=== PATIENT | male | born 1955 | race Caucasian/White ===

== ENCOUNTER 2018-01-15 18:49 | Inpatient (IN) ==
--- NOTE | 2018-01-15 20:52 | ED ---
HPI General Chief complaint: Extremity Problem,Nontraumatic Stated complaint: lft arm infection/swelling Time Seen by Provider: 01/15/18 20:41 History of Present Illness HPI Narrative: This patient complains of pain and swelling and redness of his left elbow region. Is tracking down his forearm into his hand. Duration 2 weeks. He went to an urgent care center yesterday and got a prescription for Bactrim and Keflex which he started yesterday. There is no drainage or injury. Symptom severity is moderate. He is vacationing from [place]. No alleviating factors. No exacerbating factors. Related Data Home Medications Medication Instructions Recorded Confirmed cephalexin [Keflex] 500 mg PO TID 01/15/18 01/15/18 sulfamethoxazole-trimethoprim 1 tab PO Q12H 01/15/18 01/15/18 [Bactrim DS] Allergies Allergy/AdvReac Type Severity Reaction Status Date / Time No Known Allergies Allergy Unverified 01/15/18 19:10 Review of Systems ROS: all other systems reviewed are negative [facility] Medical History Medical History Prostate CA (Acute) Surgical History Surgical History No history of previous surgery (Acute) Social History Social History Substance History: No History of Abuse Second Hand Smoke Exposure: No Smoking Status: Never smoker How Often Do You Have a Drink Containing Alcohol: 4 or more times a week Recent Travel in [facility] within the Last 8 Weeks: No Recent Out of Country Travel within the Last 8 Weeks: No Exam Narrative Exam Narrative: GENERAL: Well-nourished, well-developed patient in no apparent distress. SKIN: Focused skin assessment reveals no rash and nodules. Skin is Warm and dry. HEAD: Atraumatic. Normocephalic. EYES: Pupils equal and round. No scleral icterus. No injection or drainage. ENT: No nasal bleeding or discharge. Mucous membranes pink and moist. NECK: Trachea midline. No JVD. CARDIOVASCULAR: Regular rate and rhythm. No murmur appreciated. RESPIRATORY: No accessory muscle use. Clear to auscultation. Breath sounds equal bilaterally. GASTROINTESTINAL: Abdomen soft, non-tender, nondistended. Hepatic and splenic margins not palpable. MUSCULOSKELETAL: No obvious deformities. No clubbing. No cyanosis. Patient has a swollen olecranon bursa with erythema and tenderness and warmth. The hand is swollen and the forearm is swollen as well. Neurovascularly intact. No tenseness to compartments. There is no fluctuance or drainage. Good range of motion of left elbow without pain NEUROLOGICAL: Awake and alert. No obvious cranial nerve deficits. Motor grossly within normal limits. Normal speech. PSYCHIATRIC: Appropriate mood and affect; insight and judgment normal. Course Initial Documented Vital Signs Temperature 100.5 F H 01/15/18 19:04 Pulse Rate 108 H 01/15/18 19:04 Respiratory Rate 18 01/15/18 19:04 Blood Pressure 153/91 H 01/15/18 19:04 Pulse Oximetry 95 01/15/18 19:04 Last Documented Vital Signs Temperature 100.5 F H 01/15/18 19:04 Pulse Rate 108 H 01/15/18 19:04 Respiratory Rate 18 01/15/18 19:04 Blood Pressure 153/91 H 01/15/18 19:04 Pulse Oximetry 95 01/15/18 19:04 Medical Decision Making MDM Narrative Medical decision making narrative: Patient has a left olecranon bursitis that is starting to become forearm cellulitis. He does not have a septic joint. IV placed and labs sent. His lab studies are normal. Procedure note: I explained risks benefits and alternatives. He gives verbal consent to do aspiration of his bursa. I cleaned the area thoroughly with Betadine. I anesthetized the area around his left olecranon bursa with ethyl chloride spray. I inserted an 18-gauge needle into the bursa and withdrew some bragg colored pus. That will be sent for culture and sensitivity and Gram stain I gave him 1 g IV vancomycin I believe the patient needs admission for IV antibiotics and consideration of consultation for formal drainage given that the bursa is full of pus. I reviewed with the hospitalist. Medical Records Medical records reviewed: Yes I reviewed the patient's medical records. Lab Data Result diagrams: 01/15/18 21:13 01/15/18 21:13 Lab Results 01/15/18 01/15/18 Range/Units 21:13 21:13 CBC w Diff Auto diff final WBC 9.3 (4.0-11.0) th/mm3 RBC 4.63 (4.50-5.90) mil/mm3 Hgb 14.5 (13.0-17.0) gm/dL Hct 42.1 (39.0-51.0) % MCV 90.9 (80.0-100.0) fL MCH 31.2 (27.0-34.0) pg MCHC 34.4 (32.0-36.0) % RDW 13.0 (11.6-17.2) % Plt Count 282 (150-450) th/mm3 MPV 7.4 (7.0-11.0) fL Neut % (Auto) 81.5 H (16.0-70.0) % Lymph % (Auto) 11.8 (9.0-44.0) % [place] % (Auto) 5.5 (0.0-8.0) % Eos % (Auto) 0.8 (0.0-4.0) % Baso % (Auto) 0.4 (0.0-2.0) % Neut # (Auto) 7.6 (1.8-7.7) th/mm3 Lymph # (Auto) 1.1 (1.0-4.8) th/mm3 [place] # (Auto) 0.5 (0.0-0.9) th/mm3 Eos # (Auto) 0.1 (0.0-0.4) th/mm3 Baso # (Auto) 0.0 (0.0-0.2) th/mm3 WBC Differential . Differential Comment . Sodium 136 (136-145) meq/L Potassium 3.9 (3.5-5.1) meq/L Chloride 101 (98-107) meq/L Carbon Dioxide 28.3 (21.0-32.0) meq/L Anion Gap 7 (5-15) meq/L BUN 14 (7-18) mg/dL Creatinine 1.20 (0.60-1.30) mg/dL Estimated GFR 61 L (>89) mL/min Random Glucose 109 H (74-106) mg/dL Calcium 8.7 (8.5-10.1) mg/dL Discharge Plan Discharge Disposition Patient Disposition: 30 Still Patient Discharge Details Diagnosis: Olecranon bursitis of left elbow, Cellulitis of forearm, left Physicians Team ED Provider: Roverto López Primary Care Provider: UNKNOWN, Rxs /Orders / Referrals /Forms Prescriptions: No Action sulfamethoxazole-trimethoprim [Bactrim DS] 800-160 mg Tablet 1 tab PO Q12H RF: 0 cephalexin [Keflex] 500 mg Capsule 500 mg PO TID RF: 0 Status ED Status: With Doctor
[2018-01-15] MEDS ORDERED: ETHYL CHLORIDE TOPICAL ONE (21:06)
[2018-01-15 21:17] LABS: Baso % (Auto) 0.4 % (0.0-2.0); Eos # (Auto) 0.1 th/mm3 (0.0-0.4); Eos % (Auto) 0.8 % (0.0-4.0); Hematocrit 42.1 % (39.0-51.0); Hemoglobin 14.5 gm/dL (13.0-17.0); Lymph # (Auto) 1.1 th/mm3 (1.0-4.8); Lymph % (Auto) 11.8 % (9.0-44.0); Mean Corpuscular HGB Conc 34.4 % (32.0-36.0); Mean Corpuscular Hemoglobin 31.2 pg (27.0-34.0); Mean Corpuscular Volume 90.9 fL (80.0-100.0); Mean Platelet Volume 7.4 fL (7.0-11.0); Mono # (Auto) 0.5 th/mm3 (0.0-0.9); Mono % (Auto) 5.5 % (0.0-8.0); Neut # (Auto) 7.6 th/mm3 (1.8-7.7); Neut % (Auto) 81.5 % (16.0-70.0); Platelet Count 282 th/mm3 (150-450); Red Blood Count 4.63 mil/mm3 (4.50-5.90); White Blood Count 9.3 th/mm3 (4.0-11.0)
[2018-01-15 21:24] LABS: Potassium 3.9 meq/L (3.5-5.1)
[2018-01-15 21:27] LABS: Calcium 8.7 mg/dL (8.5-10.1); Carbon Dioxide 28.3 meq/L (21.0-32.0)
[2018-01-15] MEDS ORDERED: Vancomycin Inj 1,000 MG in Sodium Chlor 0.9% Inj 250 ML IV.SIG ONE (21:58)
[2018-01-15] MEDS ORDERED: Temazepam 15 MG Capsule PO PRN (22:07)
[2018-01-15] MEDS ORDERED: Bisacodyl 10 MG Supp RECTAL PRN (22:07)
[2018-01-15] MEDS ORDERED: Vancomycin Consult Pharmacy 1 EACH OTHER SCH (22:07)
[2018-01-15] MEDS ORDERED: Acetaminophen 325 MG Tablet PO PRN (22:07)
[2018-01-15] MEDS ORDERED: Piperacil/Tazo 3.375 GM Premix 50 ML IV.SIG ONE (22:30)
[2018-01-15] MEDS: Sod Chloride 0.9% Inj 1,000 ML IV.CONT SCH (22:47)
[2018-01-15] MEDS: Heparin - SQ 10,000 UNITS/ML Vial SQ SCH (23:05)
[2018-01-16] MEDS: Piperacil/Tazo 3.375 GM Premix 50 ML IV.SIG SCH ×3 (05:19→16:08)
[2018-01-16 06:34] LABS: Baso % (Auto) 0.5 % (0.0-2.0); Eos # (Auto) 0.1 th/mm3 (0.0-0.4); Eos % (Auto) 1.5 % (0.0-4.0); Hemoglobin 14.3 gm/dL (13.0-17.0); Lymph # (Auto) 1.1 th/mm3 (1.0-4.8); Lymph % (Auto) 12.6 % (9.0-44.0); Mean Corpuscular Hemoglobin 31.3 pg (27.0-34.0); Mean Platelet Volume 7.5 fL (7.0-11.0); Mono # (Auto) 0.6 th/mm3 (0.0-0.9); Mono % (Auto) 7.7 % (0.0-8.0); Neut # (Auto) 6.6 th/mm3 (1.8-7.7); Neut % (Auto) 77.7 % (16.0-70.0); Platelet Count 260 th/mm3 (150-450); Red Blood Count 4.56 mil/mm3 (4.50-5.90); Red Cell Distribution Width 12.8 % (11.6-17.2); White Blood Count 8.4 th/mm3 (4.0-11.0)
[2018-01-16 06:42] LABS: Potassium 3.8 meq/L (3.5-5.1)
[2018-01-16 06:50] LABS: Calcium 8.4 mg/dL (8.5-10.1); Carbon Dioxide 27.6 meq/L (21.0-32.0)
[2018-01-16] MEDS ORDERED: Vancomycin Inj 1,000 MG in Sodium Chlor 0.9% Inj 250 ML IV.SIG SCH (09:00)
[2018-01-16] MEDS: Heparin - SQ 10,000 UNITS/ML Vial SQ SCH ×3 (09:00→21:55)
[2018-01-16] MEDS: Senna/Docusate Sodium 8.6/50 MG Tablet PO SCH ×2 (09:09→21:53)
[2018-01-16] MEDS: Vancomycin Inj 1,000 MG in Sodium Chlor 0.9% Inj 250 ML IV.SIG SCH ×2 (10:25→21:53)
[2018-01-16] MEDS: Sod Chloride 0.9% Inj 1,000 ML IV.CONT SCH (10:26)
--- NOTE | 2018-01-16 10:30 | P.HPIM ---
History of Present Illness Primary Care Physician: UNKNOWN Chief Complaint: Left elbow pain and arm swelling History of Present Illness: Patient is a 62-year-old gentleman with history of prostate cancer which has been quite well controlled. Recently he was doing quite a bit of strenuous activity noted some pain in his elbow. Several days later he noted some pus- looking lesion on the elbow. He sought out urgent care and was given Keflex and Bactrim which she took for about 24 hours. He notices arm began more swelling. He was seen in the emergency room here because of this worsening of symptoms and patient was recommended for further evaluation of the hospital. - Diagnosis (1) Sepsis affecting skin (2) Cellulitis of forearm, left (3) Tinea pedis Review of Systems All other systems reviewed negative except as stated in HPI Skin/Breast: Reports rash (Bilateral feet) PMFSH - History History Provided By: Patient - Medical History Medical History: Medical History (Last Reviewed 01/16/18 @ 10:27 by aKelyn Vargas MD) Prostate CA - Surgical History Surgical History: Surgical History (Last Reviewed 01/16/18 @ 10:27 by Kaelyn Vargas MD) No history of previous surgery - Family History Family History: Family History (Last Updated 01/16/18 @ 10:27 by Kaelyn Vargas MD) Other Dementia Lung cancer - Tobacco History Second Hand Smoke Exposure: Yes Smoking Status: Never smoker - Alcohol History How Often Do You Have a Drink Containing Alcohol: Monthly or less - Substance Use History Substance History: No History of Abuse - Travel History Recent Travel in the [place] Within the Last 8 Weeks: No Recent Travel Out of the Country Within the Last 8 Weeks: No - Immunization History Tetanus Immunization: >5 Years Hx Influenza Vaccine This Season: No Medications and Allergies Active Medications: Active Medications Acetaminophen (Tylenol) 650 mg PO Q4H PRN PRN Reason: Temp > 100.4 Al Hydroxide/Mg Hydroxide (Milk Of Magnesia Liq) 30 ml PO Q12H PRN PRN Reason: Mild Constipation Bisacodyl (Dulcolax Supp) 10 mg RECTAL DAILY PRN PRN Reason: SEVERE CONSITIPATION Heparin Sodium (Porcine) (Heparin Inj) 5,000 units SQ Q12H [facility] Last Admin: 01/15/18 23:05 Dose: Not Given Sodium Chloride (Ns Inj) 1,000 mls @ 100 mls/hr IV.CONT .Q10H [facility] Last Admin: 01/15/18 22:47 Dose: 100 mls/hr Pharmacy Profile Note (Vancomycin Consult Pharmacy) 0 mls @ 0 mls/hr OTHER [facility] Piperacillin/Tazobactam/Dextrose (Zosyn 3.375 Gm Premix) 50 mls @ 100 mls/hr IV.SIG Q6H [facility] Last Admin: 01/16/18 09:08 Dose: 100 mls/hr Vancomycin HCl 1,000 mg/ (Sodium Chloride) 250 mls @ 260 mls/hr IV.SIG Q12HR [facility] Lactulose (Lactulose Liq) 30 ml PO DAILY PRN PRN Reason: SEVERE CONSITIPATION Miscellaneous Information ([facility] Ordered Lab Info) 0 each OTHER UNSCH X1 ONE Stop: 01/17/18 08:46 Ondansetron HCl (Zofran Inj) 4 mg IV.PUSH Q6H PRN PRN Reason: NAUSEA OR VOMITING Senna/Docusate Sodium (Enedelia-Colace) 1 tab PO BID [facility] Last Admin: 01/16/18 09:09 Dose: Not Given Sennosides (Senokot) 17.2 mg PO Q12H PRN PRN Reason: Moderate Constipation Temazepam (Restoril) 15 mg PO HS PRN PRN Reason: INSOMNIA Allergies Allergy/AdvReac Type Severity Reaction Status Date / Time No Known Allergies Allergy Unverified 01/15/18 19:10 Home Medications Medication Instructions Recorded Confirmed Type cephalexin [Keflex] 500 mg PO TID 01/15/18 01/15/18 History sulfamethoxazole-trimethoprim 1 tab PO Q12H 01/15/18 01/15/18 History [Bactrim DS] Exam Vital signs: Vital Signs 01/15/18 19:04 01/15/18 23:09 01/16/18 00:45 Temperature 100.5 F H 98.3 F Pulse Rate 108 H 78 98 H Respiratory Rate 18 20 20 Blood Pressure 153/91 H 149/88 H 151/84 H Pulse Oximetry 95 95 95 01/16/18 08:00 Temperature 98.4 F Pulse Rate 86 Respiratory Rate 16 Blood Pressure 131/75 Pulse Oximetry 96 Intake & Output 01/15/18 01/16/18 01/16/18 18:59 06:59 18:59 Intake Total 470 / 470 Balance 470 / 470 Weight 93.8 kg Intake: IV 350 / 350 Zosyn 3.375 GM Premix 50 ML @ 100 / 100 100 mls/hr IV.SIG Q6H [facility] Rx#: [id number] Vancomycin Inj 1,000 MG In NS 250 / 250 Inj 250 ML @ 250 mls/hr IV.SIG ONCE ONE Rx#:[id number] Oral 120 / 120 Other: # Voids 2 Weight On Admission 93.8 kg Narrative: GENERAL: Well-nourished, well-developed patient. SKIN: Left elbow with significant erythema and improved edema, bilateral feet with dry scaly rash consistent with tinea pedis HEAD: Normocephalic. EYES: No scleral icterus. No injection or drainage. NECK: Supple, trachea midline. No JVD or lymphadenopathy. CARDIOVASCULAR: Regular rate and rhythm without murmurs, gallops, or rubs. RESPIRATORY: Breath sounds equal bilaterally. No accessory muscle use. GASTROINTESTINAL: Abdomen soft, non-tender, nondistended. MUSCULOSKELETAL: No cyanosis, or edema. BACK: Nontender without obvious deformity. No CVA tenderness. NEUROLOGICAL: Awake and alert. Cranial nerves II through XII intact. Motor and sensory grossly within normal limits. Five out of 5 muscle strength in all muscle groups. Normal speech. Results - Labs CBC & Chem 7: 01/16/18 05:58 01/16/18 05:58 Labs: Short CBC 01/15/18 01/16/18 Range/Units 21:13 05:58 WBC 9.3 8.4 (4.0-11.0) th/mm3 Hgb 14.5 14.3 (13.0-17.0) gm/dL Hct 42.1 42.0 (39.0-51.0) % Plt Count 282 260 (150-450) th/mm3 BMP 01/15/18 01/16/18 21:13 05:58 Sodium 136 139 Potassium 3.9 3.8 Chloride 101 104 Carbon Dioxide 28.3 27.6 BUN 14 12 Creatinine 1.20 1.10 Calcium 8.7 8.4 L Caprini VTE Risk Assessment Caprini VTE Risk Assessment: Moderate/High Risk (score >= 2) Caprini Risk Assessment Model: Point Value = 1 Point Value = 2 Point Value = 3 Point Value = 5 Age 41-60 Minor surgery BMI > 25 kg/m2 Swollen legs Varicose veins or History of unexplained or recurrent spontaneous Oral contraceptives or hormone replacement Sepsis (< 1 month) Serious lung disease, including pneumonia (< 1 month) Abnormal pulmonary function Acute myocardial infarction Congestive heart failure (< 1 month) History of inflammatory bowel disease Medical patient at bed rest Age 61-74 Arthroscopic surgery Major open surgery (> 45 min) Laparoscopic surgery (> 45 min) Malignancy Confined to bed (> 72 hours) Immobilizing plaster cast Central venous access Age >= 75 History of VTE Family history of VTE Factor V Leiden Prothrombin [id number] Lupus anticoagulant Anticardiolipin antibodies Elevated serum homocysteine Heparin-induced thrombocytopenia Other congenital or acquired thrombophilia Stroke (< 1 month) Elective arthroplasty Hip, pelvis, or leg fracture Acute spinal cord injury (< 1 month) Prophylaxis Regimen: Total Risk Factor Score Risk Level Prophylaxis Regimen 0-1 Low Early ambulation 2 Moderate Order ONE of the following: *Sequential Compression Device (SCD) *Heparin 5000 units SQ BID 3-4 Higher Order ONE of the following medications: *Heparin 5000 units SQ TID *Enoxaparin/Lovenox 40 mg SQ daily (WT < 150 kg, CrCl > 30 mL/min) *Enoxaparin/Lovenox 30 mg SQ daily (WT < 150 kg, CrCl > 10-29 mL/min) *Enoxaparin/Lovenox 30 mg SQ BID (WT < 150 kg, CrCl > 30 mL/min) AND/OR *Sequential Compression Device (SCD) 5 or more Highest Order ONE of the following medications: *Heparin 5000 units SQ TID (Preferred with Epidurals) *Enoxaparin/Lovenox 40 mg SQ daily (WT < 150 kg, CrCl > 30 mL/min) *Enoxaparin/Lovenox 30 mg SQ daily (WT < 150 kg, CrCl > 10-29 mL/min) *Enoxaparin/Lovenox 30 mg SQ BID (WT < 150 kg, CrCl > 30 mL/min) AND *Sequential Compression Device (SCD) Assessment and Plan - Assessment (1) Sepsis affecting skin Code(s): A41.9 - Sepsis, unspecified organism Status: Acute Plan: Patient with tachycardia and temperature 100.5. Continue with IV antibiotics and treatment of left olecranon abscess and cellulitis (2) Cellulitis of forearm, left Code(s): L03.114 - Cellulitis of left upper limb Status: Acute Plan: Continue with Zosyn and vancomycin IV, cultures preliminary did show many gram- positive cocci, identification and sensitivities are pending (3) Tinea pedis Code(s): B35.3 - Tinea pedis Status: Acute Plan: Clotrimazole twice daily - Plan Discharge Planning: Pending cultures, likely oral antibiotics H&P: Quality - VTE Deep Vein Thrombosis/Pulmonary Embolism Present on Admission: No
[2018-01-16] MEDS: Clotrimazole 1% Cream 15 GM Tube TOPICAL SCH ×2 (16:33→21:52)
[2018-01-17] MEDS: Piperacil/Tazo 3.375 GM Premix 50 ML IV.SIG SCH ×3 (00:50→11:25)
[2018-01-17] MEDS: Heparin - SQ 10,000 UNITS/ML Vial SQ SCH ×2 (04:12→11:15)
[2018-01-17] MEDS ORDERED: Pharmacy Ordered Lab Info OTHER ONE (08:45)
[2018-01-17] MEDS: Vancomycin Inj 1,000 MG in Sodium Chlor 0.9% Inj 250 ML IV.SIG SCH (09:33)
[2018-01-17] MEDS: Senna/Docusate Sodium 8.6/50 MG Tablet PO SCH (09:39)
[2018-01-17] MEDS: Clotrimazole 1% Cream 15 GM Tube TOPICAL SCH (09:53)
--- NOTE | 2018-01-17 13:53 | P.PNIM ---
Subjective Interval history: Patient seen today in follow-up for left olecranon abscess secondary to MRSA. Overall improved No fever No new complaints Edema is improved. Discharge plan discussed with patient and family and loved ones in the room Physical Exam Vital signs: Vital Signs 01/16/18 16:00 01/16/18 20:00 01/17/18 00:00 Temperature 98.2 F 98.1 F 98.1 F Pulse Rate 82 85 90 Respiratory Rate 16 18 18 Blood Pressure 118/89 142/85 H 141/87 H Pulse Oximetry 97 95 96 01/17/18 08:00 01/17/18 12:00 Temperature 97.9 F 99.1 F Pulse Rate 67 82 Respiratory Rate 18 18 Blood Pressure 126/84 123/81 Pulse Oximetry 94 L 95 Intake & Output 01/16/18 01/17/18 01/17/18 18:59 06:59 18:59 Intake Total 1650 / 1650 1350 / 1350 300 / 300 Balance 1650 / 1650 1350 / 1350 300 / 300 Weight 96.5 kg Intake: IV 1350 / 1350 1350 / 1350 300 / 300 NS Inj 1,000 ML @ 100 mls/hr IV 1000 / 1000 .CONT .Q10H [facility] Rx#:[id number] Zosyn 3.375 GM Premix 50 ML @ 100 / 100 100 / 100 50 / 50 100 mls/hr IV.SIG Q6H [facility] Rx#: [id number] Vancomycin Inj 1,000 MG In NS 250 / 250 250 / 250 250 / 250 Inj 250 ML @ 260 mls/hr IV.SIG Q12HR [facility] Rx#:[id number] Oral 300 / 300 Other: # Voids 5 Narrative: GENERAL: Well-nourished, well-developed patient. SKIN: Warm and dry. HEAD: Normocephalic. EYES: No scleral icterus. No injection or drainage. NECK: Supple, trachea midline. No JVD or lymphadenopathy. CARDIOVASCULAR: Regular rate and rhythm without murmurs, gallops, or rubs. RESPIRATORY: Breath sounds equal bilaterally. No accessory muscle use. GASTROINTESTINAL: Abdomen soft, non-tender, nondistended. MUSCULOSKELETAL: No cyanosis, left upper extremity edema improved BACK: Nontender without obvious deformity. No CVA tenderness. NEUROLOGICAL: Awake and alert. Cranial nerves II through XII intact. Motor and sensory grossly within normal limits. Five out of 5 muscle strength in all muscle groups. Normal speech. Results - Labs CBC & Chem 7: 01/16/18 05:58 01/16/18 05:58 Laboratory Results - last 24 hr 01/17/18 08:50 Vancomycin Trough 9.0 Microbiology 01/15/18 22:00 Abscess - Elbow Gram Stain - Final 01/15/18 22:00 Abscess - Elbow Wound Culture - Final S. aureus MRSA Assessment and Plan - Assessment (1) Sepsis affecting skin Code(s): A41.9 - Sepsis, unspecified organism Status: Acute Plan: Sepsis is resolved (2) Cellulitis of forearm, left Code(s): L03.114 - Cellulitis of left upper limb Status: Acute Plan: Continue with vancomycin IV, cultures MRSA (3) Tinea pedis Code(s): B35.3 - Tinea pedis Status: Acute Plan: Clotrimazole twice daily - Plan Discharge Planning: dc oral abx dc home Activity unrestricted Diet regular
[2018-01-17] MEDS ORDERED: Vancomycin Inj 1,500 MG in Sodium Chlor 0.9% Inj 500 ML IV.SIG SCH (21:00)
[2018-01-19] MEDS ORDERED: VANCOMYCIN TROUGH OTHER ONE (08:45)
== END 2018-01-17 15:55 | disposition home or self-care (01) ==
LOC: PHED 18:49 → PHEDA 18:49 → PH3 01-16 00:37
PROVIDERS: ADMIT Hospitalist; ATTEND Hospitalist